=== PATIENT | male | born 1955 | race Caucasian/White ===

== ENCOUNTER 2024-10-19 17:49 | Emergency (ER) | payer BC, SELFPAY ==
[~2024-10-19] VITALS: Ht 167.6 cm; Wt 67.1 kg
[~2024-10-19 17:49] MED LIST: ASPI325; ASPI325 PO; ATOR20; ATOR40TA PO; Coreg12.5 MG PO; LISI10; LISI20 PO; METO50ER; PANT40 PO; SUCR1 PO; UBID10
[2024-10-19 18:00] VITALS: BP 175/88
[2024-10-19] MEDS ORDERED: HYDCOR2.5C PR (22:34)
== END 2024-10-19 23:02 | disposition home or self-care (01) ==
LOC: ER 17:49
DX: K64.4 Residual hemorrhoidal skin tags (principal); I25.2 Old myocardial infarction; Z87.891 Personal history of nicotine dependence; Z79.82 Long term (current) use of aspirin; Z79.899 Other long term (current) drug therapy; Z88.8 Allergy status to other drugs, medicaments and biological substances
CPT/HCPCS: 99282

== ENCOUNTER 2025-06-08 13:23 | Observation (INO) | payer BC, SELFPAY ==
[~2025-06-08] VITALS: Ht 167.6 cm; Wt 67.6 kg
[~2025-06-08 13:23] MED LIST changes: +ALBU2.5V5 INH; -ASPI325 PO; +ASPI81CH PO; +ATOR20 PO; -ATOR40TA PO; +BACL10 PO; +CARV6.25 PO; -Coreg12.5 MG PO; +Cymbalta20 MG PO; +HYDCOR2.5C PR; +ISOSORBIDE MONO60 MG PO; +JARDIANCE10 MG PO; +NITR.4SL SL; -UBID10; +UBID10 PO
[2025-06-08 14:37] LABS: BASOPHILS ABSOLUTE AUTO 0.06 K/mm3 (0.00-0.23); BASOPHILS PERCENT AUTO 1 % (0-2); EOSINOPHILS ABSOLUTE AUTO 0.29 K/mm3 (0.00-0.68); EOSINOPHILS PERCENT AUTO 3 % (0-6); Hematocrit 44.8 % (37.0-53.0); Hemoglobin 15.0 g/dL (13.5-17.5); IMMATURE GRAN ABSOLUTE AUTO 0.02 K/mm3 (0.00-0.10); IMMATURE GRAN PERCENT AUTO 0 % (0-1); LYMPHOCYTES ABSOLUTE AUTO 1.20 K/mm3 (0.84-5.20); LYMPHOCYTES PERCENT AUTO 13 % (21-46); MONOCYTES ABSOLUTE AUTO 0.77 K/mm3 (0.16-1.47); MONOCYTES PERCENT AUTO 9 % (4-13); Mean Corpuscular HGB Conc 33.5 g/dL (31.5-36.5); Mean Corpuscular Volume 88 fL (80-100); NEUTROPHILS ABSOLUTE AUTO 6.60 K/mm3 (1.96-9.15); NEUTROPHILS PERCENT AUTO 74 % (41-73); NRBC ABSOLUTE 0.00 K/mm3 (0.00-0.02); NRBC Auto 0.0 /100 WBC (0.0-0.2); Platelet Count 218 K/mm3 (150-400); RDW Coefficient Variation 13.4 % (11.7-14.2); RDW Standard Deviation 43.3 fL (35.1-46.3)
[2025-06-08 15:14] LABS: Alanine Aminotransfer (ALT/SGP 25.0 U/L (12-78); Albumin, Blood 3.1 g/dL (3.4-5.0); Albumin/Globulin Ratio 0.9 (0.8-1.8); Anion Gap 5.0 mmol/L (3-11); Aspartate Aminotrans (AST/SGOT 23.0 U/L (12-37); Bilirubin, Total 0.6 mg/dL (0.1-1.0); Blood Urea Nitrogen 17.0 mg/dL (8-24); CO2, Blood 29.0 mmol/L (21-32); Calcium, Blood 8.5 mg/dL (8.5-10.1); Chloride, Blood 104.0 mmol/L (98-108); Creatinine, Blood 0.95 mg/dL (0.60-1.20); Globulin, Blood 3.4 g/dL (2.2-4.0); Glucose, Blood 83.0 mg/dL (70-99); Potassium, Blood 3.9 mmol/L (3.5-5.5); Sodium, Blood 134.0 mmol/L (136-145); Total Protein, Blood 6.5 g/dL (6.4-8.2)
[2025-06-08] MEDS ORDERED: Ondansetron HCl 2 MG / ML 2ML Vial IV PRN (19:10)
[2025-06-08 20:21] LABS: Prothrombin Time Results 11.2 Sec (9.7-11.5)
[2025-06-08 21:52] VITALS: BP 160/91
[2025-06-09 00:06] VITALS: BP 129/88
[2025-06-09 04:28] VITALS: BP 152/90
--- NOTE | 2025-06-09 06:02 | NUR ---
ARRIVAL/SHIFT SUMMARY PATIENT ARRIVED TO THE FLOOR AT APPROX 2150 VIA WHEELCHAIR. PATIENT A/O X4 AND IND IN THE ROOM. ASSESSMENT COMPLETE. LUNG SOUNDS DIMINISHED/ABSENT IN L SIDE. SOB WITH EXERTION, OXYGEN SATURATION ABOVE 90 ON RA. PT HAS BEEN NPO SINCE MIDNIGHT. VITAL SIGNS REMAINED STABLE. NO ACUTE CHANGES. WILL CONTINUE TO MONITOR AND REPORT TO ONCOMING RN.
[2025-06-09 07:29] VITALS: BP 148/102
[2025-06-09 10:37] LABS: Automated BF RBC Count 0.002 M/mm3 (0-0); Automated BF WBC Count 0.061 K/mm3 (0-999)
[2025-06-09 10:39] LABS: RBC Count, Body Fluid 2000 /mm3 (0-0)
[2025-06-09 10:48] LABS: Color, Body Fluid L Yellow (None-Yellow)
[2025-06-09 11:00] LABS: Lactate Dehydrogenase, Body Fl 353 U/L
[2025-06-09 11:25] LABS: Lymphocytes, Fluid 9.0 % (0.0-18.0); Monocytes/Mononuclear, Fluid 89.0 % (0.0-50.0); Total Cell Count, Body Fluid 100
[2025-06-09] MEDS ORDERED: Prinivil10 MG PO (14:46)
[2025-06-09] MEDS ORDERED: POTA10T PO (14:47)
[2025-06-09] MEDS ORDERED: TORS10 PO (14:48)
== END 2025-06-09 16:00 | disposition home or self-care (01) ==
LOC: ER 13:23 → MEDS 13:24
PROVIDERS: Nurse Practitioner Acute Care; Student in an Organized Health Care Education/Training Program; ADMIT Internal Medicine
DX: I11.0 Hypertensive heart disease with heart failure (principal); I50.20 Unspecified systolic (congestive) heart failure; J91.8 Pleural effusion in other conditions classified elsewhere; I25.10 Atherosclerotic heart disease of native coronary artery without angina pectoris; I25.2 Old myocardial infarction; E78.5 Hyperlipidemia, unspecified; Z87.891 Personal history of nicotine dependence; Z79.82 Long term (current) use of aspirin; Z79.84 Long term (current) use of oral hypoglycemic drugs; Z79.899 Other long term (current) drug therapy; Z95.5 Presence of coronary angioplasty implant and graft
CPT/HCPCS: 32555; 36415; 71045; 80053; 83615; 83880; 84157; 84484; 85025; 85610; 85730; 87070; 87075; 87077; 87186; 87205; 88108; 88305; 89051; 93005; 93010; 99285-25; A9270; G0378

== ENCOUNTER 2025-06-16 21:30 | Inpatient (IN) | payer MEDICARE, BC, SELFPAY ==
[~2025-06-16] VITALS: Ht 167.6 cm; Wt 64.0 kg
[~2025-06-16 21:30] MED LIST changes: +Heparin Sodium,Porcine 5,000 UNIT/0.5 ML SDV SC ONE; +POTA10T PO; +Prinivil10 MG PO; +TORS10 PO
[2025-06-16] MEDS ORDERED: Heparin Sodium 5000 Units/ML 1ML MDV IV ONE (21:50)
[2025-06-16 21:54] LABS: Calcium, Ionized (POC) 1.08 mmol/L (1.10-1.46); Chloride (POC) 95 mmol/L (98-108); Creatinine (POC) 1.1 mg/dL (0.8-1.3); Glucose (ISTAT POC) 113 mg/dL (70-99); Hematocrit (POC) 58.0 % (41.0-53.0); Hemoglobin (POC) 19.7 g/dL (13.5-17.5); Potassium (POC) 3.9 mmol/L (3.5-5.5); Sodium (POC) 135 mmol/L (135-148); Total CO2 (POC) 27 mmol/L (21-32)
[2025-06-16] MEDS ORDERED: LOSARTAN POTASS50 M1 (22:03)
[2025-06-16] MEDS ORDERED: Heparin Sodium 1000 Units/ML 10ML MDV ONE (22:05)
[2025-06-16] MEDS ORDERED: Verapamil HCL 2.5 MG/ML 2ML Injection ONE (22:05)
[2025-06-16] MEDS ORDERED: NS 250 ML IV ONE (22:06)
[2025-06-16] MEDS ORDERED: NS 1,000 ML IV ONE ×2 (22:06→22:08)
[2025-06-16 22:11] LABS: BASOPHILS ABSOLUTE AUTO 0.07 K/mm3 (0.00-0.23); BASOPHILS PERCENT AUTO 1 % (0-2); EOSINOPHILS ABSOLUTE AUTO 0.34 K/mm3 (0.00-0.68); EOSINOPHILS PERCENT AUTO 3 % (0-6); Hematocrit 50.0 % (37.0-53.0); Hemoglobin 17.1 g/dL (13.5-17.5); IMMATURE GRAN ABSOLUTE AUTO 0.02 K/mm3 (0.00-0.10); IMMATURE GRAN PERCENT AUTO 0 % (0-1); LYMPHOCYTES ABSOLUTE AUTO 1.75 K/mm3 (0.84-5.20); LYMPHOCYTES PERCENT AUTO 15 % (21-46); MONOCYTES ABSOLUTE AUTO 1.02 K/mm3 (0.16-1.47); MONOCYTES PERCENT AUTO 9 % (4-13); Mean Corpuscular HGB Conc 34.2 g/dL (31.5-36.5); Mean Corpuscular Volume 85 fL (80-100); NEUTROPHILS ABSOLUTE AUTO 8.79 K/mm3 (1.96-9.15); NEUTROPHILS PERCENT AUTO 73 % (41-73); NRBC ABSOLUTE 0.00 K/mm3 (0.00-0.02); NRBC Auto 0.0 /100 WBC (0.0-0.2); Platelet Count 254 K/mm3 (150-400); RDW Coefficient Variation 12.9 % (11.7-14.2); RDW Standard Deviation 40.1 fL (35.1-46.3)
[2025-06-16] MEDS ORDERED: FentaNYL Citrate 50 MCG/ML 2 ML Injection ONE (22:18)
[2025-06-16] MEDS ORDERED: Midazolam HCl 1MG / ML 2ML Vial ONE (22:18)
[2025-06-16 22:21] LABS: Alanine Aminotransfer (ALT/SGP 44.0 U/L (12-78); Albumin, Blood 3.7 g/dL (3.4-5.0); Albumin/Globulin Ratio 0.9 (0.8-1.8); Anion Gap 9.0 mmol/L (3-11); Aspartate Aminotrans (AST/SGOT 36.0 U/L (12-37); Bilirubin, Total 0.5 mg/dL (0.1-1.0); Blood Urea Nitrogen 19.0 mg/dL (8-24); CO2, Blood 29.0 mmol/L (21-32); Calcium, Blood 9.0 mg/dL (8.5-10.1); Chloride, Blood 98.0 mmol/L (98-108); Creatinine, Blood 1.01 mg/dL (0.60-1.20); Globulin, Blood 4.1 g/dL (2.2-4.0); Glucose, Blood 109.0 mg/dL (70-99); Potassium, Blood 3.9 mmol/L (3.5-5.5); Sodium, Blood 132.0 mmol/L (136-145); Total Protein, Blood 7.8 g/dL (6.4-8.2)
[2025-06-16] MEDS ORDERED: NS 500 ML IV ONE (22:32)
[2025-06-16 23:15] VITALS: BP 136/112
[2025-06-16 23:30] VITALS: BP 122/97
[2025-06-16] MEDS ORDERED: FentaNYL Citrate 50 MCG/ML 2 ML Injection IV PRN (23:30)
[2025-06-16 23:36] VITALS: BP 151/103
--- NOTE | 2025-06-16 23:37 | NUR ---
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 PT HAS 99% OF LEFT MAIN BIFORCATION AND A STENT TO AORTA. SO DR. ELIAS UNABLE TO PLACE BALLOON PUMP. PER PROVIDER PT IS TO BE SHIPPED FOR EMERGENT CORNARY BYPASS. PT ARRIVES A&O X 4, PLEASANT AND COOPERATIVE WITH CARE. PT ON RA, LUNGS CLEAR T/O AND DENIES SOB AT THIS TIME. PT STATES NO CHEST PAIN/PRESSURE AT THIS TIME. PT HAS R. RADIAL ACCESS SITE WITH TR BAND IN PLACE; SMALL HEMATOMA ABOVE ACCESS SITE; SOFT AND NON-TENDER. R. FEMORAL ACCESS SITE THAT HAD MANUAL PRESSURE HELD IN INDEPENDENT CONTRACTOR. SITE DRESSING WITH CHG DRESSING AND IS SOFT, NON-TENDER AND NO HEMATOMA PRESENT. PT DENIES ANY OTHER PAIN COMPLAINTS. PT'S , IGGY, AT BEDSIDE AND UPDATED ON PLAN TO TRANSFER TO [facility] SURGICAL ICU WITH DR. ELIAS. VERBAL ORDERS FOR ATIVAN AND HEPARIN GTT RECIEVED.
[2025-06-16 23:45] VITALS: BP 118/101
[2025-06-16 23:53] VITALS: BP 118/101
[2025-06-17] VITALS: BP 130/94
[2025-06-17 00:05] VITALS: BP 130/94
[2025-06-17] MEDS ORDERED: Dose Adjust by Pharmacy XX STA (00:07)
[2025-06-17] MEDS ORDERED: Heparin Sodium,Porcine/0.5 NS 500 ML IV SCH (00:10)
[2025-06-17 00:12] LABS: Anti-Xa UFH, PHA Monitoring <0.10 IU/mL; Prothrombin Time Results 11.3 Sec (9.7-11.5)
[2025-06-17 00:16] VITALS: BP 130/94
[2025-06-17] MEDS ORDERED: Enoxaparin 40 MG/0.4 ML SYR SC SCH (09:00)
== END 2025-06-17 00:30 | disposition short-term general hospital (02) | DRG 281 ==
LOC: ER 21:30 → ICUE 21:56
PROVIDERS: Emergency Medicine; Internal Medicine Interventional Cardiology; Student in an Organized Health Care Education/Training Program; ADMIT Student in an Organized Health Care Education/Training Program
PROC: B2111ZZ Fluoroscopy of Multiple Coronary Arteries using Low Osmolar Contrast (ICD-10-PCS; principal; 2025-06-16)
PROC: 4A023N7 Measurement of Cardiac Sampling and Pressure, Left Heart, Percutaneous Approach (ICD-10-PCS; 2025-06-16)
DX: I21.09 ST elevation (STEMI) myocardial infarction involving other coronary artery of anterior wall (principal); I50.22 Chronic systolic (congestive) heart failure; I25.5 Ischemic cardiomyopathy; Z66 Do not resuscitate; Z87.891 Personal history of nicotine dependence; Z79.82 Long term (current) use of aspirin; Z79.899 Other long term (current) drug therapy; I25.10 Atherosclerotic heart disease of native coronary artery without angina pectoris; I11.0 Hypertensive heart disease with heart failure; E78.5 Hyperlipidemia, unspecified
CPT/HCPCS: 76937; 80047; 80053; 83690; 83880; 84484; 85014; 85025; 85520; 85610; 85730; 93005; 93010; 93458; 96374-59; 99152; 99153; 99285-25; A9270; C1769; C1887; C1894; J1644; J2250; J3010; J3246; J7030; J7040; J7050; Q9967